=== PATIENT | male | born 1960 | race Two or more races ===

== ENCOUNTER 2024-03-09 14:50 | Inpatient (IN) | payer OTHER ==
[~2024-03-09] VITALS: Ht 177.8 cm; Wt 74.8 kg
[2024-03-09] MEDS: IV NS 0.9% 1,000 ML BAG IV ONE (15:40)
[2024-03-09 15:52] LABS: BASOPHILS # (AUTO) 0.1 K/uL (0.0-0.2); BASOPHILS % (AUTO) 0.6 % (0.0-2.0); EOSINOPHILS % (AUTO) 0.1 % (0.0-6.0); HEMATOCRIT 34 % (39-51); LYMPHOCYTES # (AUTO) 2.8 K/uL (0.8-4.8); LYMPHOCYTES % (AUTO) 18.3 % (20.0-44.0); MEAN CORPUSCULAR HEMOGLOBIN 34 PG (26.0-33.0); MEAN CORPUSCULAR HGB CONC 35 g/dl (31.0-36.0); MEAN CORPUSCULAR VOLUME 98 fL (80-96); MONOCYTES # (AUTO) 1.4 K/uL (0.1-1.30); MONOCYTES % (AUTO) 9.2 % (2.0-12.0); NEUTROPHILS # (AUTO) 10.8 K/uL (1.8-8.9); NEUTROPHILS % (AUTO) 71.8 % (43.0-81.0); PLATELET COUNT (AUTO) 219 K/uL (150-450); RED CELL DISTRIBUTION WIDTH 12.8 % (11.5-15.0); WHITE BLOOD COUNT (AUTO) 15.1 K/uL (4.3-11.0)
[2024-03-09 16:07] LABS: INR 1.1 (0.91-1.10); PARTIAL THROMBOPLASTIN TIME 30.9 SEC (24.3-34.3); PROTHROMBIN TIME 11.6 SECS (9.2-11.1)
[2024-03-09 16:14] LABS: CALCIUM, SERUM 9.4 mg/dL (8.5-10.1); CARBON DIOXIDE 22 mmol/L (21-32); CHLORIDE 102 mmol/L (98-107); CREATININE 0.6 mg/dL (0.6-1.3); GLUCOSE 129 mg/dL (74-106); POTASSIUM 3.6 mmol/L (3.5-5.1); SODIUM SERUM 139 mmol/L (136-145); UREA NITROGEN, BLOOD 43 mg/dL (7-18)
[2024-03-09 16:17] LABS: ALANINE AMINOTRANSFERASE 24 U/L (12-78); ALBUMIN 2.9 g/dL (3.4-5.0); ALKALINE PHOSPHATASE 78 U/L (46-116); ASPARTATE AMINOTRANSFERASE 15 U/L (15-37); BILIRUBIN,DIRECT 0.2 mg/dL (0.0-0.2); BILIRUBIN,TOTAL 0.4 mg/dL (0.2-1.0); LIPASE 31 U/L (16-77); TOTAL PROTEIN, SERUM 7.2 g/dL (6.4-8.2)
[2024-03-09] MEDS ORDERED: IV NS 0.9% 250 ML IV ONE (16:24)
[2024-03-09] MEDS ORDERED: IOHEXOL-300 100 ML VIAL IV ONE (16:24)
[2024-03-09] MEDS ORDERED: hydrALAZINE HCL IV 20 MG VIAL IV PRN (18:00)
[2024-03-09] MEDS ORDERED: ACETAMINOPHEN 325 MG TABLET PO PRN (18:00)
[2024-03-09] MEDS ORDERED: MORPHINE SULFATE INJ 2 MG/ML DISP.SYRIN IV PRN (18:00)
[2024-03-09] MEDS ORDERED: ONDANSETRON HCL/PF 4 MG/2 ML VIAL IVP PRN (18:00)
[2024-03-09 18:06] LABS: APPEARANCE,URINE CLEAR (CLEAR); BILIRUBIN,URINE NEGATIVE (NEGATIVE); BLOOD, URINE NEGATIVE Ery/uL (NEGATIVE); COLOR,URINE YELLOW (YELLOW); KETONES,URINE 1+ mg/dL (NEGATIVE); LEUKOCYTE ESTERASE ,URINE NEGATIVE (NEGATIVE); NITRITE, URINE NEGATIVE (NEGATIVE); PROTEIN,URINE NEGATIVE (NEGATIVE); UGLUCOSE NEGATIVE (NEGATIVE); UROBILINOGEN,URINE 0.2 EU/dL (0.2)
[2024-03-09 18:15] LABS: ADD URINE CULTURE NO; BACTERIA,URINE None seen /HPF (None Seen); MUCUS,URINE Few /LPF (None Seen); RBC,URINE 0-2 /HPF (0-2); SQUAMOUS EPITHELIAL CELL,UR 0-2 /HPF (None Seen); WBC,URINE 0-2 /HPF (0-3)
[2024-03-09] MEDS ORDERED: MIDAZOLAM HCL 2 MG/2ML VIAL ONE (18:31)
[2024-03-09] MEDS ORDERED: FLUMAZENIL 0.5 MG VIAL ONE (18:32)
[2024-03-09] MEDS ORDERED: ALBUTEROL SULFATE 8 GM HFA.AER.AD IH PRN (19:00)
[2024-03-09] MEDS ORDERED: LIDOCAINE HCL/MPF 1% 30 ML VIAL IJ ONE (19:04)
[2024-03-09 19:08] LABS: AMPHETAMINE, URINE NEGATIVE (NEGATIVE); COCCAINE, URINE NEGATIVE (NEGATIVE); OPIATE, URINE NEGATIVE (NEGATIVE)
[2024-03-09 19:20] LABS: BENZODIAZEPINE, URINE NEGATIVE (NEGATIVE); CANNABINOID, URINE POSITIVE (NEGATIVE); PHENCYCLIDINE SCREEN,URINE NEGATIVE (NEGATIVE)
[2024-03-09 20:00] VITALS: BP 114/61; TEMP 98.8
[2024-03-09 20:50] LABS: HEMOGLOBIN 10.3 g/dL (13.5-17.5)
[2024-03-09] MEDS: IV NS 0.9% 1,000 ML IV SCH (21:01)
[2024-03-09] MEDS: PANTOPRAZOLE 40 MG VIAL IV SCH (21:19)
[2024-03-09] MEDS: CHLORDIAZEPOXIDE HCL 25 MG CAPSULE PO SCH (21:20)
[2024-03-09] MEDS: CEFEPIME 2 GM in IV D5W 100 ML IV SCH (21:33)
[2024-03-09] MEDS ORDERED: METOCLOPRAMIDE HCL 10 MG/2 ML VIAL ONE (21:49)
[2024-03-09] MEDS: METOCLOPRAMIDE HCL 10 MG/2 ML VIAL IV ONE (21:51)
[2024-03-09] MEDS: VANCOMYCIN HCL 1.25 GM in IV D5W 250 ML IV ONE (22:06)
[2024-03-09 22:32] LABS: BARBITURATE, URINE NEGATIVE (NEGATIVE)
[2024-03-10] VITALS (9 sets, daily range): BP systolic 98–120; BP diastolic 58–75; TEMP 97.8–99; O2SAT 92–96
[2024-03-10 04:11] LABS: BASOPHILS % (AUTO) 0.3 % (0.0-2.0); EOSINOPHILS # (AUTO) 0.1 K/uL (0.0-0.7); EOSINOPHILS % (AUTO) 0.5 % (0.0-6.0); HEMATOCRIT 28 % (39-51); HEMOGLOBIN 9.5 g/dL (13.5-17.5); LYMPHOCYTES # (AUTO) 1.5 K/uL (0.8-4.8); LYMPHOCYTES % (AUTO) 10.8 % (20.0-44.0); MEAN CORPUSCULAR HEMOGLOBIN 35 PG (26.0-33.0); MEAN CORPUSCULAR HGB CONC 35 g/dl (31.0-36.0); MEAN CORPUSCULAR VOLUME 100 fL (80-96); MONOCYTES # (AUTO) 1.1 K/uL (0.1-1.30); NEUTROPHILS % (AUTO) 80.4 % (43.0-81.0); PLATELET COUNT (AUTO) 165 K/uL (150-450); RED BLOOD CELL COUNT(AUTO) 2.76 MIL/uL (4.5-6.0); RED CELL DISTRIBUTION WIDTH 13.1 % (11.5-15.0); WHITE BLOOD COUNT (AUTO) 13.7 K/uL (4.3-11.0)
[2024-03-10 04:26] LABS: ALBUMIN 2.2 g/dL (3.4-5.0); BILIRUBIN,TOTAL 0.6 mg/dL (0.2-1.0); CALCIUM, SERUM 7.9 mg/dL (8.5-10.1); CREATININE 0.6 mg/dL (0.6-1.3); MAGNESIUM 1.8 mg/dL (1.8-2.4); PHOSPHORUS 3.4 mg/dL (2.5-4.9); POTASSIUM 3.2 mmol/L (3.5-5.1); TOTAL PROTEIN, SERUM 5.7 g/dL (6.4-8.2)
[2024-03-10] MEDS: VANCOMYCIN 1 GM in IV D5W 250ml IV SCH (04:43)
[2024-03-10] MEDS: PANTOPRAZOLE 40 MG TABLET.DR PO SCH (08:51)
[2024-03-10] MEDS: POTASSIUM CHLORIDE 20 MEQ TAB.PRT.SR PO SCH (10:48)
[2024-03-10 11:49] LABS: HEMOGLOBIN 8.6 g/dL (13.5-17.5)
[2024-03-10] MEDS: CHLORDIAZEPOXIDE HCL 25 MG CAPSULE PO SCH (16:40)
[2024-03-10 20:22] LABS: HEMOGLOBIN 8.4 g/dL (13.5-17.5)
[2024-03-11] VITALS (11 sets, daily range): BP systolic 105–133; BP diastolic 58–72; TEMP 97.7–98.2; O2SAT 93–100
[2024-03-11 04:08] LABS: HEMOGLOBIN 7.9 g/dL (13.5-17.5)
[2024-03-11 04:18] LABS: CALCIUM, SERUM 7.8 mg/dL (8.5-10.1); CREATININE 0.6 mg/dL (0.6-1.3); POTASSIUM 3.2 mmol/L (3.5-5.1)
[2024-03-11] MEDS: POTASSIUM CHLORIDE 20 MEQ POWDER PACKET PO ONE (09:32)
[2024-03-11 17:54] LABS: HEMOGLOBIN 9.2 g/dL (13.5-17.5)
[2024-03-12] VITALS: BP 106/54; TEMP 98.2; O2SAT 95
[2024-03-12 00:08] VITALS: BP 95/51; TEMP 98.2; O2SAT 93
[2024-03-12 04:00] VITALS: BP 104/61; TEMP 97.9; O2SAT 94
[2024-03-12 04:44] VITALS: BP 104/61; TEMP 97.9; O2SAT 94
[2024-03-12 06:43] LABS: CALCIUM, SERUM 8.1 mg/dL (8.5-10.1); CREATININE 0.6 mg/dL (0.6-1.3); POTASSIUM 3.5 mmol/L (3.5-5.1)
[2024-03-12 06:54] LABS: BASOPHILS # (AUTO) 0.1 K/uL (0.0-0.2); BASOPHILS % (AUTO) 0.8 % (0.0-2.0); EOSINOPHILS # (AUTO) 0.2 K/uL (0.0-0.7); EOSINOPHILS % (AUTO) 2.2 % (0.0-6.0); HEMATOCRIT 24 % (39-51); HEMOGLOBIN 8.7 g/dL (13.5-17.5); LYMPHOCYTES # (AUTO) 1.4 K/uL (0.8-4.8); LYMPHOCYTES % (AUTO) 20.5 % (20.0-44.0); MEAN CORPUSCULAR HEMOGLOBIN 35 PG (26.0-33.0); MEAN CORPUSCULAR HGB CONC 36 g/dl (31.0-36.0); MEAN CORPUSCULAR VOLUME 99 fL (80-96); MONOCYTES # (AUTO) 0.7 K/uL (0.1-1.30); MONOCYTES % (AUTO) 10.8 % (2.0-12.0); NEUTROPHILS # (AUTO) 4.5 K/uL (1.8-8.9); NEUTROPHILS % (AUTO) 65.7 % (43.0-81.0); PLATELET COUNT (AUTO) 169 K/uL (150-450); RED BLOOD CELL COUNT(AUTO) 2.46 MIL/uL (4.5-6.0); RED CELL DISTRIBUTION WIDTH 12.7 % (11.5-15.0); WHITE BLOOD COUNT (AUTO) 6.9 K/uL (4.3-11.0)
[2024-03-12 07:00] VITALS: BP 135/77; TEMP 94.4; O2SAT 96
[2024-03-12 08:00] VITALS: BP 135/77; TEMP 97.7; O2SAT 96
[2024-03-12] MEDS: CHLORDIAZEPOXIDE HCL 25 MG CAPSULE PO SCH (08:54)
[2024-03-12 09:36] LABS: HEMOGLOBIN 8.6 g/dL (13.5-17.5)
[2024-03-12] MEDS ORDERED: PANT40TA49 PO (12:46)
[2024-03-13] MEDS ORDERED: CHLORDIAZEPOXIDE HCL 25 MG CAPSULE PO SCH (09:00)
== END 2024-03-12 15:48 | disposition home or self-care (01) | DRG 241 ==
LOC: ER 15:12 → TELE 20:23
PROVIDERS: ADMIT Internal Medicine; ATTEND Nurse Practitioner Acute Care
PROC: 0DB68ZX Excision of Stomach, Via Natural or Artificial Opening Endoscopic, Diagnostic (ICD-10-PCS; principal; 2024-03-09)
DX: K26.4 Chronic or unspecified duodenal ulcer with hemorrhage (principal); E44.1 Mild protein-calorie malnutrition; K74.60 Unspecified cirrhosis of liver; K22.2 Esophageal obstruction; E88.09 Other disorders of plasma-protein metabolism, not elsewhere classified; K29.70 Gastritis, unspecified, without bleeding; K44.9 Diaphragmatic hernia without obstruction or gangrene; K57.30 Diverticulosis of large intestine without perforation or abscess without bleeding; D53.9 Nutritional anemia, unspecified; D72.829 Elevated white blood cell count, unspecified; F10.10 Alcohol abuse, uncomplicated; Y90.0 Blood alcohol level of less than 20 mg/100 ml; D62 Acute posthemorrhagic anemia; Z91.81 History of falling
CPT/HCPCS: 36415; 71260-TC; 80048-TC; 80053-TC; 80076-TC; 80202-TC; 81001; 83605-TC; 83690-TC; 83735-TC; 84100-TC; 84484-TC; 85025-TC; 85027-TC; 85730-TC; 86850-TC; 87040-TC; A4223; C9113; G0378; G0480; J0692; J2250; J2704; J2765; J3370; J3490; J7030; J7050; J7060; Q9967